=== PATIENT | female | born 1945 | race Caucasian/White ===

== ENCOUNTER → 2018-10-20 | Outpatient (CLI) | payer MEDICARE | LOC: COL.PUL 11:01 | DX: J44.9 Chronic obstructive pulmonary disease, unspecified (principal); F17.210 Nicotine dependence, cigarettes, uncomplicated ==

== ENCOUNTER → 2020-07-05 | Outpatient (CLI) | payer MEDICARE | LOC: COL.VAS 06-13 13:30 | DX: R06.02 Shortness of breath (principal); I34.0 Nonrheumatic mitral (valve) insufficiency; I34.8 Other nonrheumatic mitral valve disorders; I31.3 Pericardial effusion (noninflammatory) ==

== ENCOUNTER → 2021-09-03 | Outpatient (CLI) | payer MEDICARE ==
[~2021-09-03] MED LIST: BREZTRI AEROS10.7 GM IH; COZAAR 25MG25 MG/TAB PO; CRANBERRY 100 M1 SGL PO; DOXYCYCLINE HY100 MG PO; EUTHYROX25 MCG PO; GLUCOPHAGE500 MG/TAB PO; IPRATROPIUM BROM3 M1 IH; MULTI VITAMINS1 TAB PO; OSCAL 500 TAB500 MG PO; PROVENTIL0.09 MG/A1 IH; PROZAC 20MG20 MG PO; SYNTHROID0.05 MG/TA PO; ZOCOR 20MG20 MG PO; ZOCOR5 MG PO; elderberry PO
== END ==
LOC: COL.RAD 08:35
DX: Z48.03 Encounter for change or removal of drains (principal)